=== PATIENT | male | born 1955 | race Caucasian/White ===

== ENCOUNTER → 2017-03-20 | Outpatient (CLI) | payer OTHER ==
--- NOTE | 2017-03-20 14:57 | XR ---
EXAMINATION TYPE: XR chest 2V DATE OF EXAM: 03/20/2017 COMPARISON: 08/02/2014 TECHNIQUE: PA and lateral views submitted. HISTORY: Annual physical FINDINGS: The lungs are clear and there is no pneumothorax, pleural effusion, or focal pneumonia. Hypertrophi c change of the spine. Mild hyperinflation. Biapical pleural thickening. IMPRESSION: 1. No acute process. Correlate for mild COPD.
== END | disposition home or self-care (01) ==
LOC: RADXRMAIN 14:25
PROVIDERS: ATTEND Family Medicine
DX: Z00.00 Encounter for general adult medical examination without abnormal findings (principal)
CPT/HCPCS: 71020

== ENCOUNTER 2019-01-21 07:06 | Day surgery (SDC) | payer BC ==
[2019-01-18 14:48] VITALS: BMI 23.0
[~2019-01-21 07:06] MED LIST: LACTATED RINGERS 1,000 ML IV SCH; LIDOCAINE 1% 20 ML VIAL (10MG/ML) FOR IV START INTRADERMA PRN
[2019-01-21 07:17] VITALS: RESP 18; TEMP 97.1
[2019-01-21] MEDS ORDERED: PROPOFOL 10 MG/ML 20 ML VIAL IV ONE (07:30)
--- NOTE | 2019-01-21 07:33 | P.GSHP ---
History of Present Illness H&P Date: 01/21/19 Chief Complaint: Blood in stool Patient here today for colonoscopy. Last colonoscopy 3 years ago. He had a small polyp at that time. Prep was poor at that time. Recently did cologuard test and was found to be positive. Past Medical History Past Medical History: No Reported History Additional Past Medical History / Comment(s): positive cologuard History of Any Multi-Drug Resistant Organisms: None Reported Additional Past Surgical History / Comment(s): colonoscopy; hemorrhoidectomy Past Anesthesia/Blood Transfusion Reactions: No Reported Reaction Smoking Status: Never smoker - Past Family History Father Family Medical History: Cancer Medications and Allergies Home Medications Medication Instructions Recorded Confirmed Type Aspirin [Adult Low Dose Aspirin EC] 81 mg PO DAILY 01/18/19 01/21/19 History Allergies Allergy/AdvReac Type Severity Reaction Status Date / Time No Known Allergies Allergy Verified 01/18/19 14:42 Surgical - Exam Vital Signs Temp Pulse Resp BP Pulse Ox 97.1 F L 65 18 122/76 97 01/21/19 07:14 01/21/19 07:14 01/21/19 07:14 01/21/19 07:14 01/21/19 07:14 Physical exam: General: Well-developed, well-nourished HEENT: Normocephalic, sclerae nonicteric Abdomen: Nontender, nondistended Extremities: No edema Neuro: Alert and oriented Assessment and Plan (1) Blood in stool Narrative/Plan: Will proceed with colonoscopy at this time Current Visit: Yes Status: Acute Code(s): K92.1 - MELENA SNOMED Code(s): 097601534
--- NOTE | 2019-01-21 07:56 | P.PCN ---
Date of Procedure: 01/21/19 Procedure(s) Performed: PREOPERATIVE DIAGNOSIS: Blood in stool POSTOPERATIVE DIAGNOSIS: Normal exam with slightly suboptimal prep PROCEDURE: Colonoscopy ANESTHESIA: MAC SURGEON: Dewey Junior M.D. SPECIMENS: None ENDOSCOPIC PROCEDURE: The patient was placed on the endoscopy table in the left decubitus position. The Olympus colonoscope was inserted into the anus and passed under direct visualization to the base of the cecum. The appendiceal orifice was visualized. From that point the scope was slowly withdrawn inspecting all surfaces carefully. There were no neoplastic inflammatory or polypoid lesions throughout the cecum, ascending, transverse, descending, sigmoid and rectum. There was no visible diverticulosis noted. Overall the patient's prep was improved since the study 3 years ago however there was still some retained liquid stool seen scattered throughout. There was enough partic ulate matter that made it difficult to evacuate all of the stool. Smaller polyps may have been missed. Recommend follow-up colonoscopy in 5 years. Digital rectal examination was normal. The patient was taken to the recovery room in stable condition per anesthesia guidelines.
[2019-01-21 08:19] VITALS: BP 119/79; PULSE 68
== END 2019-01-21 08:37 | disposition home or self-care (01) ==
LOC: ORWHC2ENDO 07:06
PROVIDERS: ATTEND Surgery
DX: K92.1 Melena (principal); Z86.010 Personal history of colon polyps; Z79.82 Long term (current) use of aspirin
CPT/HCPCS: 45378; J2704

== ENCOUNTER 2021-09-03 17:58 | Emergency (ER) | payer BC ==
[2021-09-03 18:40] VITALS: BP 149/73; PULSE 95; RESP 18; TEMP 98.1
[2021-09-03] MEDS ORDERED: SULFAMETH-TMP DS STARTER PACK 2 TAB BTL PO STA (20:13)
--- NOTE | 2021-09-03 20:15 | ED ---
General Adult HPI - General Chief complaint: Extremity Injury, Upper Stated complaint: infected elbow Time Seen by Provider: 09/03/21 19:49 Source: patient Mode of arrival: ambulatory Limitations: no limitations - History of Present Illness Initial comments: 66-year-old male patient presents to the emergency department today for evaluation of infection to the right arm. Patient states a little over a week ago he fell off a ladder and scraped his arm. States that he went on a cruise and started having redness, swelling, heat to the area. States he did see the cruise ship physician had labs done was diagnosed with cellulitis and started on Augmentin. Patient states he has been taking antibiotic but noticed it started draining pus today. He denies any fever or chills. Denies nausea or vomiting. Denies history of diabetes or MRSA. Patient denies any recent rash, cough, shortness of breath, chest pain, abdominal pain, diarrhea, constipation, back pain, numbness, tingling, dizziness, weakness, hematuria, dysuria, urinary urgency, urinary frequency, headache, visual changes, or any other complaints. - Related Data Home Medications Medication Instructions Recorded Confirmed Aspirin [Adult Low Dose Aspirin EC] 81 mg PO DAILY 01/18/19 01/21/19 Previous Rx's Medication Instructions Recorded Sulfamethoxazole/Trimethoprim 1 each PO BID #20 tablet 09/03/21 [Bactrim DS 800-160 mg] Allergies Allergy/AdvReac Type Severity Reaction Status Date / Time No Known Allergies Allergy Verified 09/03/21 18:40 Review of Systems ROS Statement: Those systems with pertinent positive or pertinent negative responses have been documented in the HPI. ROS Other: All systems not noted in ROS Statement are negative. Past Medical History Past Medical History: No Reported History Additional Past Medical History / Comment(s): positive cologuard History of Any Multi-Drug Resistant Organisms: None Reported Additional Past Surgical History / Comment(s): colonoscopy; hemorrhoidectomy Past Anesthesia/Blood Transfusion Reactions: No Reported Reaction Past Psychological History: No Psychological Hx Reported Smoking Status: Never smoker Past Alcohol Use History: Occasional Past Drug Use History: Marijuana - Past Family History Father Family Medical History: Cancer General Exam Limitations: no limitations General appearance: alert, in no apparent distress, other (This is a well- developed, well-nourished adult male in no acute distress.) ENT exam: Present: normal exam, normal oropharynx, mucous membranes moist Respiratory exam: Present: normal lung sounds bilaterally. Absent: respiratory distress, wheezes, rales, rhonchi, stridor Cardiovascular Exam: Present: regular rate, normal rhythm, normal heart sounds. Absent: systolic murmur, diastolic murmur, rubs, gallop, clicks GI/Abdominal exam: Present: soft, normal bowel sounds. Absent: distended, tenderness, guarding, rebound, rigid Extremities exam: Present: full ROM, normal capillary refill, other (Right lateral forearm erythema, swelling, there is purulent drainage from a central opening. Skin is otherwise pink, warm, dry. Cap refill less than 3 seconds. Radial pulses 2+.). Absent: normal inspection, tenderness, pedal edema, joint swelling, calf tenderness Neurological exam: Present: alert, oriented X3, CN II-XII intact Psychiatric exam: Present: normal affect, normal mood Skin exam: Present: warm, dry, intact, normal color. Absent: rash Course Vital Signs 09/03/21 18:35 Temperature 98.1 F Pulse Rate 95 Respiratory 18 Rate Blood Pressure 149/73 O2 Sat by Pulse 98 Oximetry Medical Decision Making - Medical Decision Making 66-year-old male patient presents for evaluation of infection to the right arm. Physical examination did reveal soft tissue swelling, erythema, purulent drainage from a central opening. I did drain the area, expressed purulent fluid until nothing else would come out. Culture was sent. He'll be discharged with additional antibiotics of Bactrim. He is instructed to continue the Augmentin. He is instructed to apply warm compresses 4-5 times per day. He is instructed follow up with his primary care physician for recheck in 1-2 days. Return parameters were discussed in detail. He verbalizes understanding and agrees with this plan. My attending is Dr. Valencia. Disposition Clinical Impression: Abscess of right arm, Cellulitis of right arm Disposition: HOME SELF-CARE Condition: Good Instructions (If sedation given, give patient instructions): Cellulitis (ED), Abscess (ED) Additional Instructions: Complete antibiotic prescription in full. Follow-up with your primary care physician for recheck in 1-2 days. Return to the emergency department immediately for any new, worsening, or concerning symptoms. Prescriptions: Sulfamethoxazole/Trimethoprim [Bactrim DS 800-160 mg] 1 each PO BID #20 tablet Is patient prescribed a controlled substance at d/c from ED?: No Referrals: Magan Rossi DO [Primary Care Provider] - 1-2 days Time of Disposition: 20:14
== END 2021-09-03 20:39 | disposition home or self-care (01) ==
LOC: EC 17:58
DX: L02.413 Cutaneous abscess of right upper limb (principal); L03.113 Cellulitis of right upper limb
CPT/HCPCS: 87070; 87205; 99283

== ENCOUNTER → 2021-11-02 | Outpatient (CLI) | payer BC ==
[2021-11-02 14:07] LABS: Basophils # (A) 0.06 X 10*3/uL (0.00-0.10); Basophils % (A) 1.3 %; Eosinophils # (A) 0.16 X 10*3/uL (0.04-0.35); Eosinophils % (A) 3.4 %; HCT 44.1 % (39.6-50.0); HGB 14.3 g/dL (13.0-17.0); Immature Grans, Automated 0.2 %; Lymphocytes # (A) 2.03 X 10*3/uL (0.90-5.00); Lymphocytes % (A) 42.6 %; MCH 29.9 pg (27.0-32.0); MCHC 32.4 g/dL (32.0-37.0); MCV 92.1 fL (80.0-97.0); Mean Platelet Volume 11.1 fL (9.5-12.2); Monocytes # (A) 0.41 X 10*3/uL (0.20-1.00); Monocytes % (A) 8.6 %; NRBC Per 100 WBC 0 /100 WBCS (0.0-0.0); Neutrophils # (A) 2.09 X 10*3/uL (1.80-7.70); Neutrophils % (A) 43.9 %; Platelet Count 270 X 10*3/uL (140-440); RBC 4.79 X 10*6/uL (4.40-5.60); RDW 13.3 % (11.5-14.5); WBC 4.76 X 10*3/uL (4.50-10.00)
[2021-11-02 14:25] LABS: ALT 19 U/L (10-49); AST 18 U/L (14-35); African American GFR (CKD) 109.2 (60.0-200.0); Albumin 4.1 g/dL (3.8-4.9); Albumin/Globulin Ratio 1.89 (1.60-3.17); Alkaline Phosphatase 62 U/L (41-126); BUN/Creat Ratio 17.83 Ratio (12.00-20.00); Blood Urea Nitrogen 14.1 mg/dL (9.0-27.0); Calcium 9.3 mg/dL (8.7-10.3); Carbon Dioxide 24.9 mmol/L (20.0-27.5); Chloride 106 mmol/L (96-109); Globulin 2.2 g/dL (1.6-3.3); Glucose 104 mg/dL (70-110); LDL Cholesterol,Calculated 151.4 mg/dL (0.0-131.0); Non-African American GFR(CKD) 94.2 (60.0-200.0); Potassium 4.3 mmol/L (3.5-5.5); Sodium 142 mmol/L (135-145); Total Protein 6.3 g/dL (6.2-8.2); VLDL Calculation 12.04 mg/dL (5.00-40.00)
== END | disposition home or self-care (01) ==
LOC: LABWHC1 08:56
PROVIDERS: ATTEND Family Medicine
DX: Z00.00 Encounter for general adult medical examination without abnormal findings (principal); Z12.5 Encounter for screening for malignant neoplasm of prostate; E78.5 Hyperlipidemia, unspecified
CPT/HCPCS: 84439; 80061; 80053; 84443; 85025; 83036; 36415; G0103

== ENCOUNTER 2023-05-19 12:04 | Day surgery (SDC) | payer BC ==
[2023-05-19] MEDS ORDERED: LACTATED RINGERS 1,000 ML IV SCH (12:23)
[2023-05-19 12:27] VITALS: TEMP 97.7
[2023-05-19] MEDS ORDERED: PROPOFOL 10 MG/ML 20 ML VIAL IV ONE (12:37)
--- NOTE | 2023-05-19 12:40 | P.GSHP ---
History of Present Illness H&P Date: 05/19/23 Chief Complaint: SCREENING 68-year-old male here for colonoscopy. Last colonoscopy 4 years ago. Patient's prep was slightly suboptimal. Patient has history of colon polyps. Family history of colon cancer in his mother. Lately he has had some right-sided abdominal pain. CAT scan and the worry showed constipation. Past Medical History Past Medical History: No Reported History Additional Past Medical History / Comment(s): Abdominal discomfort. History of Any Multi-Drug Resistant Organisms: None Reported Additional Past Surgical History / Comment(s): colonoscopy; hemorrhoidectomy Past Anesthesia/Blood Transfusion Reactions: No Reported Reaction Smoking Status: Never smoker - Past Family History Father Family Medical History: Cancer Medications and Allergies Home Medications Medication Instructions Recorded Confirmed Type Emtricitabine/Tenofovir (Tdf) 1 tab PO QAM 05/14/23 05/19/23 History [Truvada 200 mg-300 mg Tablet] Allergies Allergy/AdvReac Type Severity Reaction Status Date / Time No Known Allergies Allergy Verified 05/19/23 12:28 Surgical - Exam Vital Signs Temp Pulse Resp BP Pulse Ox 97.7 F 79 16 122/82 98 05/19/23 12:26 05/19/23 12:26 05/19/23 12:26 05/19/23 12:26 05/19/23 12:26 Physical exam: General: Well-developed, well-nourished HEENT: Normocephalic, sclerae nonicteric Abdomen: Nontender, nondistended Extremities: No edema Neuro: Alert and oriented Assessment and Plan (1) Colon cancer screening Narrative/Plan: We'll proceed with colonoscopy at this time. Current Visit: No Status: Acute Code(s): Z12.11 - ENCOUNTER FOR SCREENING FOR MALIGNANT NEOPLASM OF COLON SNOMED Code(s): 441857350
--- NOTE | 2023-05-19 12:53 | P.PCN ---
Date of Procedure: 05/19/23 Procedure(s) Performed: PREOPERATIVE DIAGNOSIS: Colon cancer screening POSTOPERATIVE DIAGNOSIS: Normal exam PROCEDURE: Colonoscopy ANESTHESIA: MAC SURGEON: Dewey Junior M.D. SPECIMENS: None ENDOSCOPIC PROCEDURE: The patient was placed on the endoscopy table in the left decubitus position. The Olympus colonoscope was inserted into the anus and passed under direct visualization to the base of the cecum. The appendiceal orifice was visualized. From that point the scope was slowly withdrawn inspecti ng all surfaces carefully. There were no neoplastic inflammatory or polypoid lesions throughout the cecum, ascending, transverse, descending, sigmoid and rectum. There was no visible diverticulosis noted. Digital rectal examination was normal. The patient was taken to the recovery room in stable condition per anesthesia guidelines. RECOMMENDATIONS: Resume diet. Repeat colonoscopy in 5-7 years because of history of colon polyps. Continue workup of abdominal pain.
[2023-05-19 13:55] VITALS: BP 110/67; PULSE 78; RESP 18
== END 2023-05-19 14:06 | disposition home or self-care (01) ==
LOC: ORWHC2ENDO 12:04
PROVIDERS: ATTEND Surgery
DX: Z12.11 Encounter for screening for malignant neoplasm of colon (principal); Z86.010 Personal history of colon polyps; Z79.624 Long term (current) use of inhibitors of nucleotide synthesis; Z79.82 Long term (current) use of aspirin; Z80.0 Family history of malignant neoplasm of digestive organs
CPT/HCPCS: 45378; J2704

== ENCOUNTER → 2023-08-27 | Outpatient (CLI) | payer BC ==
--- NOTE | 2023-08-27 12:21 | CT ---
EXAMINATION: CT ABDOMEN AND PELVIS WITHOUT IV CONTRAST DATE OF EXAMINATION: 08/27/2023. COMPARISON: 08/15/2023.. INDICATION: Right upper quadrant pain. PROCEDURE: Axial CT of the abdomen and pelvis was performed with contrast and sagittal and coronal reformatted images were performed. CT dose lowering techniques were used, to include: automated expos ure control, adjustment for patient size, and/or use of iterative reconstruction. FINDINGS: LOWER CHEST : The visualized lung bases are clear. There are no pleural or pericardial effusions. ABDOMEN: Liver and Biliary system: Normal. Adrenal glands: Normal. Kidneys and ureters: Unchanged right renal cyst. No renal stones, ureteral stones or hydronephrosis i s seen Spleen: Normal. Pancreas: Normal. Gallbladder: Normal. Lymph nodes, Peritoneum and mesentery: There is no mesenteric or retroperitoneal lymphadenopathy. Gastrointestinal tract: There are no dilated loops of bowel or free intraperitoneal air. The appe ndix is normal. Aorta/IVC: No aortic aneurysm. IVC normal. Abdominal wall: Normal. PELVIS: Fluid: There is no free fluid in the pelvis. Lymph Nodes: There is no pelvic or inguinal lymphadenopathy.. Urinary bladder: Normal. BONES: There are no osseous destructive lesions.. ADDITIONAL SIGNIFICANT FINDINGS: None. IMPRESSION: No acute process within the abdomen or pelvis.
== END | disposition home or self-care (01) ==
LOC: RADCTMAIN 10:15
PROVIDERS: ATTEND Family Medicine
DX: R10.11 Right upper quadrant pain (principal)
CPT/HCPCS: 74176

== ENCOUNTER → 2023-09-15 | Outpatient (CLI) | payer BC ==
--- NOTE | 2023-09-15 13:46 | NM ---
EXAMINATION TYPE: NM hepatobiliary w EF DATE OF EXAM: 09/15/2023 COMPARISON: NONE CLINICAL INDICATION: Male, 68 years old with history of RUQ pain; TECHNIQUE: After the intravenous administration of 4.9 mCi Tc 99m Mebrofenin hepatobiliary scintigrap hy is performed. Immediate images post injection. FINDINGS: There is satisfactory initial accumulation of tracer by the liver. The gallbladder is visualized wit hin 10 minutes. The small bowel activity is noted within 8 minutes. At one hour 8 ounces of oral ensure plus is given to mimic CCK and gallbladder ejection fraction is c alculated at 72 %, upper limits of the normal range. IMPRESSION: No scintigraphic evidence for acute/chronic cholecystitis or biliary dyskinesia.
== END | disposition home or self-care (01) ==
LOC: RADNMMAIN 09-14 13:08
PROVIDERS: ATTEND Family Medicine
DX: R10.11 Right upper quadrant pain (principal)
CPT/HCPCS: 78226; A9537

== ENCOUNTER 2023-09-18 16:20 | Observation (INO) | payer BC ==
--- NOTE | 2023-09-18 16:42 | ED ---
Skin/Abscess/FB HPI - General Source: patient, RN notes reviewed <Shani Chao - Last Filed: 09/18/23 16:40> - General Source: patient, RN notes reviewed Limitations: no limitations <Albino Ramirez - Last Filed: 09/18/23 20:38> - General Stated complaint: left face rash Time Seen by Provider: 09/18/23 16:40 - History of Present Illness Initial comments: Patient is a 68 year old male presenting to the ER with a chief complaint of facial rash. Patient states it has been going on for a couple of days and has gotten worse. Denies and fever, chills, nightsweats. (Shani Chao) Patient is a pleasant 68-year-old male presenting to the emergency Department with rash to his face. Onset was a couple days ago. Patient had basal cell carcinoma removed from his left scalp several days prior to that. No fever. Patient does have discomfort and swelling. No dyspnea or dysphasia. (Albino Ramirez) - Related Data Home Medications Medication Instructions Recorded Confirmed Emtricitabine/Tenofovir (Tdf) 1 tab PO DAILY 05/14/23 09/18/23 [Truvada 200 mg-300 mg Tablet] Multivitamins, Thera [Multivitamin 1 tab PO DAILY 09/18/23 09/18/23 (formulary)] Prevagen 1 cap PO DAILY 09/18/23 09/18/23 Sildenafil Citrate 100 mg PO DIRECTED PRN 09/18/23 09/18/23 Allergies Allergy/AdvReac Type Severity Reaction Status Date / Time No Known Allergies Allergy Verified 09/18/23 18:19 Review of Systems ROS Other: All systems not noted in ROS Statement are negative. <Shani Chao - Last Filed: 09/18/23 16:40> ROS Other: All systems not noted in ROS Statement are negative. Constitutional: Denies: fever, chills Eyes: Denies: eye pain ENT: Denies: ear pain Respiratory: Denies: cough, dyspnea Cardiovascular: Denies: chest pain Skin: Reports: as per HPI, rash <Albino Ramirez - Last Filed: 09/18/23 20:38> ROS Statement: Those systems with pertinent positive or pertinent negative responses have been documented in the HPI. Past Medical History Past Medical History: No Reported History Additional Past Medical History / Comment(s): Abdominal discomfort. History of Any Multi-Drug Resistant Organisms: None Reported Additional Past Surgical History / Comment(s): colonoscopy; hemorrhoidectomy Past Anesthesia/Blood Transfusion Reactions: No Reported Reaction Smoking Status: Never smoker - Past Family History Father Family Medical History: Cancer <Shani Chao - Last Filed: 09/18/23 16:40> General Exam <Shani Chao - Last Filed: 09/18/23 16:40> Limitations: no limitations General appearance: alert Head exam: Present: other (3-4 cm incision left parietal region with swelling and purulent discharge) Eye exam: Present: normal appearance ENT exam: Present: normal oropharynx Neck exam: Present: normal inspection Respiratory exam: Present: normal lung sounds bilaterally Cardiovascular Exam: Present: regular rate, normal rhythm GI/Abdominal exam: Present: soft. Absent: tenderness Extremities exam: Present: normal inspection Neurological exam: Present: alert Psychiatric exam: Present: normal affect, normal mood Skin exam: Present: other (Left scalp incision with swelling and purulent drainage and erythema extending to the left side of the face and neck.) <Albino Ramirez - Last Filed: 09/18/23 20:38> - General Exam Comments Initial Comments: Visual Physical Exam Vital signs reviewed General: Well-appearing, nontoxic, no acute distress. Head: Normocephalic, abrasion on left forehead Eyes: PERRLA, EOMI ENT: Airway patent Chest: Nonlabored breathing Skin: Left face erythematous Neuro: Alert and oriented 3 Musculoskeletal: No gross abnormalities (Shani Chao) Course Vital Signs 09/18/23 09/18/23 16:45 19:13 Temperature 98.5 F 98.9 F Pulse Rate 93 94 Respiratory 18 16 Rate Blood Pressure 141/82 148/89 O2 Sat by Pulse 98 98 Oximetry Medical Decision Making <Shani Chao - Last Filed: 09/18/23 16:40> - Lab Data Result diagrams: 09/18/23 17:45 09/18/23 17:45 <Albino Ramirez - Last Filed: 09/18/23 20:38> - Medical Decision Making I performed the quick note portion of the exam. Electronically signed by Shani Chao PA-C (Shani Chao) Was pt. sent in by a medical professional or institution ([facility], [facility], urgent care, hospital, or residential...) When possible be specific @ -Patient did go to urgent care and was advised come to the hospital Did you speak to anyone other than the patient for history (EMS, parent, family, police, friend...)? What history was obtained from this source @ -No Did you review nursing and triage notes (agree or disagree)? Why? @ -I reviewed and agree with nursing and triage notes Were old charts reviewed (outside hosp., previous admission, EMS record, old EKG, old radiological studies, urgent care reports/EKG's, residential records)? Report findings @ -No old charts were reviewed Differential Diagnosis (chest pain, altered mental status, abdominal pain women, abdominal pain men, vaginal bleeding, weakness, fever, dyspnea, syncope, headache, dizziness, GI bleed, back pain, seizure, CVA, palpatations, mental health, musculoskeletal)? @ -Differential Fever: Pneumonia, viral URI, endocarditis, myocarditis, pericarditis, otitis, sinusitis, peritonsillar Abscess, retropharyngeal Abscess, epiglottitis, periton itis, appendicitis, Kyra cystitis, diverticulitis, hepatitis, colitis, UTI, PID, TOA, pyelonephritis, prostatitis, epididymitis, meningitis, encephalitis, pulmonary embolism, CVA, thyroid storm, pancreatitis, adrenal crisis, cavernous sinus thrombosis, this is not meant to be an all-inclusive list. EKG interpreted by me (3pts min.). @ -As above X-rays interpreted by me (1pt min.). @ -None done CT interpreted by me (1pt min.). @ -None done U/S interpreted by me (1pt. min.). @ -None done What testing was considered but not performed or refused? (CT, X-rays, U/S, labs)? Why? @ -None What meds were considered but not given or refused? Why? @ -None Did you discuss the management of the patient with other professionals (professionals i.e. [facility], [facility], lab, RT, psych nurse, psychosocial rehabilitation counselor, power equipment technology instructor, teacher, patient safety officer, pillowcase cleaner)? Give summary @ -Case was discussed with practitioner Niko Sargent, who will admit covering hospital call Was smoking cessation discussed for >3mins.? @ -No Was critical care preformed (if so, how long)? @ -No Were there social determinants of health that impacted care today? How? (Homelessness, low income, unemployed, alcoholism, drug addiction, transportation, low edu. Level, literacy, decrease access to med. care, [facility], rehab)? @ -No Was there de-escalation of care discussed even if they declined (Discuss DNR or withdrawal of care, Hospice)? DNR status @ -No What co-morbidities impacted this encounter? (DM, HTN, Smoking, COPD, CAD, Cancer, CVA, ARF, Chemo, Hep., AIDS, mental health diagnosis, sleep apnea, morbid obesity)? @ -None Was patient admitted / discharged? Hospital course, mention meds given and route, prescriptions, significant lab abnormalities, going to OR and other pertinent info. @ -Patient updated. Patient will be admitted with IV antibiotics. Admission orders written. Undiagnosed new problem with uncertain prognosis? @ -No Drug Therapy requiring intensive monitoring for toxicity (Heparin, Nitro, Insulin, Cardizem)? @ -No Were any procedures done? @ -No Diagnosis/symptom? @ -Facial cellulitis, scalp incision infection Acute, or Chronic, or Acute on Chronic? @ - acute, acute Uncomplicated (without systemic symptoms) or Complicated (systemic symptoms)? @ -default Side effects of treatment? @ -No Exacerbation, Progression, or Severe Exacerbation? @ -No Poses a threat to life or bodily function? How? (Chest pain, USA, NE, pneumonia, PE, COPD, DKA, ARF, appy, cholecystitis, CVA, Diverticulitis, Homicidal, Suicidal, threat to staff... and all critical care pts) @ -No (Albino Ramirez) - Lab Data Lab Results 09/18/23 09/18/23 09/18/23 Range/Units 17:45 17:45 17:45 WBC 9.9 (3.8-10.6) k/uL RBC 4.71 (4.30-5.90) m/uL Hgb 14.7 (13.0-17.5) gm/dL Hct 43.0 (39.0-53.0) % MCV 91.2 (80.0-100.0) fL MCH 31.2 (25.0-35.0) pg MCHC 34.2 (31.0-37.0) g/dL RDW 12.6 (11.5-15.5) % Plt Count 250 (150-450) k/uL MPV 7.8 Neutrophils % 74 % Lymphocytes % 18 % Monocytes % 5 % Eosinophils % 1 % Basophils % 0 % Neutrophils # 7.3 (1.3-7.7) k/uL Lymphocytes # 1.8 (1.0-4.8) k/uL Monocytes # 0.5 (0-1.0) k/uL Eosinophils # 0.1 (0-0.7) k/uL Basophils # 0.0 (0-0.2) k/uL PT 9.9 L (10.0-12.5) sec INR 0.9 (<1.2) APTT 25.0 (22.0-30.0) sec Sodium 138 (137-145) mmol/L Potassium 4.3 (3.5-5.1) mmol/L Chloride 100 (98-107) mmol/L Carbon Dioxide 26 (22-30) mmol/L Anion Gap 12 mmol/L BUN 19 (9-20) mg/dL Creatinine 0.81 (0.66-1.25) mg/dL Est GFR (CKD-EPI)AfAm >90 (>60 ml/min/1.73 sqM) Est GFR (CKD-EPI)NonAf >90 (>60 ml/min/1.73 sqM) Glucose 92 (74-99) mg/dL Plasma Lactic Acid Jose (0.7-2.0) mmol/L Calcium 9.3 (8.4-10.2) mg/dL Total Bilirubin 0.8 (0.2-1.3) mg/dL AST 25 (17-59) U/L ALT 24 (4-49) U/L Alkaline Phosphatase 92 (38-126) U/L Total Protein 6.9 (6.3-8.2) g/dL Albumin 3.8 (3.5-5.0) g/dL 09/18/23 Range/Units 17:45 WBC (3.8-10.6) k/uL RBC (4.30-5.90) m/uL Hgb (13.0-17.5) gm/dL Hct (39.0-53.0) % MCV (80.0-100.0) fL MCH (25.0-35.0) pg MCHC (31.0-37.0) g/dL RDW (11.5-15.5) % Plt Count (150-450) k/uL MPV Neutrophils % % Lymphocytes % % Monocytes % % Eosinophils % % Basophils % % Neutrophils # (1.3-7.7) k/uL Lymphocytes # (1.0-4.8) k/uL Monocytes # (0-1.0) k/uL Eosinophils # (0-0.7) k/uL Basophils # (0-0.2) k/uL PT (10.0-12.5) sec INR (<1.2) APTT (22.0-30.0) sec Sodium (137-145) mmol/L Potassium (3.5-5.1) mmol/L Chloride (98-107) mmol/L Carbon Dioxide (22-30) mmol/L Anion Gap mmol/L BUN (9-20) mg/dL Creatinine (0.66-1.25) mg/dL Est GFR (CKD-EPI)AfAm (>60 ml/min/1.73 sqM) Est GFR (CKD-EPI)NonAf (>60 ml/min/1.73 sqM) Glucose (74-99) mg/dL Plasma Lactic Acid Jose 0.9 (0.7-2.0) mmol/L Calcium (8.4-10.2) mg/dL Total Bilirubin (0.2-1.3) mg/dL AST (17-59) U/L ALT (4-49) U/L Alkaline Phosphatase (38-126) U/L Total Protein (6.3-8.2) g/dL Albumin (3.5-5.0) g/dL Disposition <Shani Chao - Last Filed: 09/18/23 16:40> Is patient prescribed a controlled substance at d/c from ED?: No Time of Disposition: 17:47 <Albino Ramirez - Last Filed: 09/18/23 20:38> Clinical Impression: Facial cellulitis, Incisional infection Disposition: ADMITTED IP TO THIS HOSP
[2023-09-18] MEDS ORDERED: VANCOMYCIN IV PER PHARMACY 1 EACH MISC MISCELLANE PRN (17:37)
[2023-09-18] MEDS ORDERED: AMPICILLIN-SULBACTAM 3 GM in SODIUM CHLORIDE 0.9% 100 ML IVPB STA (17:38)
[2023-09-18] MEDS ORDERED: VANCOMYCIN 1,500 MG in SODIUM CHLORIDE 0.9% 500 ML 500 ML IVPB STA (17:42)
[2023-09-18] MEDS ORDERED: ACETAMINOPHEN TAB 325 MG TAB PO PRN (17:49)
[2023-09-18] MEDS ORDERED: NALOXONE 0.4 MG/ML 1 ML VIAL IV PRN (17:49)
[2023-09-18] MEDS ORDERED: traMADol 50 MG TAB PO PRN (17:49)
[2023-09-18] MEDS: SODIUM CHLORIDE 0.9% 1,000 ML IV SCH ×2 (18:06→23:56)
[2023-09-18 18:36] LABS: Basophils % (A) 0 %; Eosinophils # (A) 0.1 k/uL (0-0.7); Eosinophils % (A) 1 %; HGB 14.7 gm/dL (13.0-17.5); Lymphocytes # (A) 1.8 k/uL (1.0-4.8); Lymphocytes % (A) 18 %; MCH 31.2 pg (25.0-35.0); MCHC 34.2 g/dL (31.0-37.0); MCV 91.2 fL (80.0-100.0); Mean Platelet Volume 7.8; Monocytes # (A) 0.5 k/uL (0-1.0); Monocytes % (A) 5 %; Neutrophils # (A) 7.3 k/uL (1.3-7.7); Neutrophils % (A) 74 %; Platelet Count 250 k/uL (150-450); RBC 4.71 m/uL (4.30-5.90); RDW 12.6 % (11.5-15.5); WBC 9.9 k/uL (3.8-10.6)
[2023-09-18 18:43] LABS: INR 0.9 (<1.2); Prothrombin Time 9.9 sec (10.0-12.5)
[2023-09-18 18:46] LABS: ALT 24 U/L (4-49); AST 25 U/L (17-59); African American GFR (CKD) >90 (>60 ml/min/1.73 sqM); Albumin 3.8 g/dL (3.5-5.0); Alkaline Phosphatase 92 U/L (38-126); Anion Gap 12 mmol/L; Blood Urea Nitrogen 19 mg/dL (9-20); Calcium 9.3 mg/dL (8.4-10.2); Carbon Dioxide 26 mmol/L (22-30); Chloride 100 mmol/L (98-107); Glucose 92 mg/dL (74-99); Non-African American GFR(CKD) >90 (>60 ml/min/1.73 sqM); Potassium 4.3 mmol/L (3.5-5.1); Sodium 138 mmol/L (137-145); Total Bilirubin 0.8 mg/dL (0.2-1.3); Total Protein 6.9 g/dL (6.3-8.2)
[2023-09-18 19:32] VITALS: RESP 16
[2023-09-18] MEDS: AMPICILLIN-SULBACTAM 3 GM in SODIUM CHLORIDE 0.9% 100 ML IVPB SCH (23:54)
[2023-09-19] MEDS: AMPICILLIN-SULBACTAM 3 GM in SODIUM CHLORIDE 0.9% 100 ML IVPB SCH ×3 (06:01→18:30)
[2023-09-19 07:48] LABS: Basophils # (A) 0.1 k/uL (0-0.2); Basophils % (A) 1 %; Eosinophils # (A) 0.2 k/uL (0-0.7); Eosinophils % (A) 2 %; HCT 36.9 % (39.0-53.0); HGB 12.4 gm/dL (13.0-17.5); Lymphocytes # (A) 1.9 k/uL (1.0-4.8); Lymphocytes % (A) 23 %; MCH 30.6 pg (25.0-35.0); MCHC 33.7 g/dL (31.0-37.0); MCV 90.9 fL (80.0-100.0); Mean Platelet Volume 8.4; Monocytes # (A) 0.4 k/uL (0-1.0); Monocytes % (A) 5 %; Neutrophils # (A) 5.7 k/uL (1.3-7.7); Neutrophils % (A) 68 %; Platelet Count 222 k/uL (150-450); RBC 4.06 m/uL (4.30-5.90); WBC 8.5 k/uL (3.8-10.6)
[2023-09-19 08:10] LABS: African American GFR (CKD) >90 (>60 ml/min/1.73 sqM); Anion Gap 9 mmol/L; Blood Urea Nitrogen 14 mg/dL (9-20); Calcium 8.5 mg/dL (8.4-10.2); Carbon Dioxide 23 mmol/L (22-30); Chloride 108 mmol/L (98-107); Glucose 85 mg/dL (74-99); Non-African American GFR(CKD) >90 (>60 ml/min/1.73 sqM); Sodium 140 mmol/L (137-145)
[2023-09-19] MEDS: VANCOMYCIN 1,500 MG in SODIUM CHLORIDE 0.9% 500 ML 500 ML IVPB SCH ×2 (09:44→18:30)
[2023-09-19] MEDS ORDERED: oxyCODONE-APAP 5-325MG 1 EACH TAB PO PRN (09:50)
[2023-09-19] MEDS ORDERED: ONDANSETRON 4 MG/2 ML VIAL IVP PRN (09:50)
[2023-09-19] MEDS: SODIUM CHLORIDE 0.9% 1,000 ML IV SCH ×2 (13:11→18:20)
[2023-09-19] MEDS: EMTRICITABINE/TENOFOVIR 200MG/300MG PO SCH (13:11)
--- NOTE | 2023-09-19 15:49 | P.HPIM ---
History of Present Illness H&P Date: 09/19/23 Chief Complaint: Facial rash * 68-year-old gentleman with past medical history significant for recent resection for basal cell carcinoma on left side of scalp, presents to the emergency department with complains of facial rash suspected cellulitis * Workup in ER included CBC which were WBC of 9.9 hemoglobin 14.7 platelet 250 INR of 0.9 * Serum chemistry shows sodium 138 potassium 4.3 chloride 100 B UN 19 creatinine 0.81 * Patient was started on IV antibiotics including Unasyn and vancomycin included with fluid resuscitation and consultation from infectious disease REVIEW OF SYSTEMS: Left scalp CONSTITUTIONAL: No fever, no malaise, no fatigue. HEENT: No recent visual problems or hearing problems. Denied any sore throat. CARDIOVASCULAR: No chest pain, orthopnea, PND, no palpitations, no syncope. PULMONARY: No shortness of breath, no cough, no hemoptysis. GASTROINTESTINAL: No diarrhea, no nausea, no vomiting, no abdominal pain. NEUROLOGICAL: No headaches, no weakness, no numbness. HEMATOLOGICAL: Denies any bleeding or petechiae. GENITOURINARY: Denies any burning micturition, frequency, or urgency. MUSCULOSKELETAL/RHEUMATOLOGICAL: Denies any joint pain, swelling, or any muscle pain. ENDOCRINE: Denies any polyuria or polydipsia. PHYSICAL EXAMINATION: GENERAL: The patient is alert and oriented x3, HEENT: Pupils are round and equally reacting to light. EOMI. discharge from surgical resection site CARDIOVASCULAR: S1 and S2 present. No murmurs, rubs, or gallops. PULMONARY: Chest is clear to auscultation, no wheezing or crackles. ABDOMEN: Soft, nontender, nondistended, normoactive bowel sounds. No palpable organomegaly. MUSCULOSKELETAL: No joint swelling or deformity. EXTREMITIES: No cyanosis, clubbing, or pedal edema. NEUROLOGICAL: Gross neurological examination did not reveal any focal deficits. SKIN: Left scalp rash with purulent discharge Past Medical History Past Medical History: No Reported History Additional Past Medical History / Comment(s): Abdominal discomfort History of Any Multi-Drug Resistant Organisms: None Reported Additional Past Surgical History / Comment(s): colonoscopy; hemorrhoidectomy, removed basal cancer on top of head Past Anesthesia/Blood Transfusion Reactions: No Reported Reaction Past Psychological History: No Psychological Hx Reported Smoking Status: Never smoker Past Alcohol Use History: None Reported Past Drug Use History: None Reported - Past Family History Father Family Medical History: Cancer Medications and Allergies Home Medications Medication Instructions Recorded Confirmed Type Emtricitabine/Tenofovir (Tdf) 1 tab PO DAILY 05/14/23 09/18/23 History [Truvada 200 mg-300 mg Tablet] Multivitamins, Thera [Multivitamin 1 tab PO DAILY 09/18/23 09/18/23 History (formulary)] Prevagen 1 cap PO DAILY 09/18/23 09/18/23 History Sildenafil Citrate 100 mg PO DIRECTED PRN 09/18/23 09/18/23 History Allergies Allergy/AdvReac Type Severity Reaction Status Date / Time No Known Allergies Allergy Verified 09/18/23 18:19 Physical Exam Vitals: Vital Signs Temp Pulse Pulse Resp BP BP Pulse Ox 09/19/23 07:00 97.7 F 82 16 107/69 97 09/19/23 02:00 98.2 F 80 16 110/67 96 09/18/23 21:01 97.7 F 93 16 123/77 99 09/18/23 19:13 98.9 F 94 16 148/89 98 09/18/23 16:45 98.5 F 93 18 141/82 98 Intake and Output 09/18/23 09/19/23 09/19/23 22:59 06:59 14:59 Intake Total 500 118 Balance 500 118 Intake: Oral 500 118 Other: # Voids 1 Weight 79.379 kg Results CBC & Chem 7: 09/19/23 06:50 09/19/23 06:50 Labs: Abnormal Lab Results - Last 24 Hours (Table) 09/18/23 09/19/23 09/19/23 Range/Units 17:45 06:50 06:50 RBC 4.06 L (4.30-5.90) m/uL Hgb 12.4 L (13.0-17.5) gm/dL Hct 36.9 L (39.0-53.0) % PT 9.9 L (10.0-12.5) sec Chloride 108 H (98-107) mmol/L Assessment and Plan Assessment: Assessment and plan * Status post resection of skin lesion with cellulitis * Left scalp cellulitis * History of basal cell carcinoma * In regards to facial cellulitis continue IV antibiotic Unasyn and vancomycin * Infectious disease consulted * Continue patient on IV fluid, continue pain control, DVT prophylaxis with Lovenox * CODE STATUS is full code Time with Patient: Greater than 30
[2023-09-19] MEDS: DOCUSATE 100 MG CAP PO SCH (16:23)
--- NOTE | 2023-09-19 23:37 | P.CONS ---
History of Present Illness - Reason for Consult Consult date: 09/19/23 Facial cellulitis, infected incision Requesting physician: Albino Ramirez - Chief Complaint Left-sided facial swelling x 1 day - History of Present Illness Patient is a 68-year-old male with a past medical history significant for recent resection of a basal cell carcinoma from the scalp area patient subsequently developing pain and irritation to his incision site and then noticed to having increasing swelling and redness to the left side of his face for the patient presented to the hospital patient has been complaining of pain to the scalp or needed to be more of a dull aching throbbing moderate intensity without any radiation and did have some drainage also complaining of increasing swelling or redness to the left side his face especially while the left p eriorbital area patient denies high-grade fever or any chills and on presentation to the hospital the patient was afebrile patient was not tachycardic hypotensive or hypoxic he did have white count of 9.9 creatinine 0.81 electrolytes are normal liver enzymes are normal patient was started on Unasyn and vancomycin infectious disease was consulted for further management of antibiotic therapy Review of Systems Positive point and negatives has been mentioned in the HPI, complete review of systems was performed and all other systems are negative Past Medical History Past Medical History: No Reported History Additional Past Medical History / Comment(s): Abdominal discomfort History of Any Multi-Drug Resistant Organisms: None Reported Additional Past Surgical History / Comment(s): colonoscopy; hemorrhoidectomy, removed basal cancer on top of head Past Anesthesia/Blood Transfusion Reactions: No Reported Reaction Past Psychological History: No Psychological Hx Reported Smoking Status: Never smoker Past Alcohol Use History: None Reported Past Drug Use History: None Reported - Past Family History Father Family Medical History: Cancer Medications and Allergies Home Medications Medication Instructions Recorded Confirmed Type Emtricitabine/Tenofovir (Tdf) 1 tab PO DAILY 05/14/23 09/18/23 History [Truvada 200 mg-300 mg Tablet] Multivitamins, Thera [Multivitamin 1 tab PO DAILY 09/18/23 09/18/23 History (formulary)] Prevagen 1 cap PO DAILY 09/18/23 09/18/23 History Sildenafil Citrate 100 mg PO DIRECTED PRN 09/18/23 09/18/23 History Amoxic-Pot Clav 875-125Mg 1 tab PO BID 7 Days #14 tab 09/20/23 Rx [Augmentin 875-125] Allergies Allergy/AdvReac Type Severity Reaction Status Date / Time No Known Allergies Allergy Verified 09/18/23 18:19 Physical Exam Vitals: Vital Signs Temp Pulse Pulse Resp BP BP Pulse Ox 09/19/23 07:00 97.7 F 82 16 107/69 97 09/19/23 02:00 98.2 F 80 16 110/67 96 09/18/23 21:01 97.7 F 93 16 123/77 99 09/18/23 19:13 98.9 F 94 16 148/89 98 09/18/23 16:45 98.5 F 93 18 141/82 98 Intake and Output 09/18/23 09/19/23 09/19/23 22:59 06:59 14:59 Intake Total 500 118 Balance 500 118 Intake: Oral 500 118 Other: # Voids 1 Weight 79.379 kg GENERAL DESCRIPTION: Elderly male lying in bed, no distress. No tachypnea or accessory muscle of respiration use. HEENT: Shows Pallor , no scleral icterus. Oral mucous membrane is dry. No pharyngeal erythema or thrush NECK: Trachea central, no thyromegaly. LUNGS: Unlabored breathing. Clear to auscultation anteriorly. No wheeze or crackle. HEART: S1, S2, regular rate and rhythm. No loud murmur ABDOMEN: Soft, no tenderness , guarding or rigidity, no organomegaly EXTREMITIES: No edema of feet. SKIN: Patient did have a wound to the scalp area currently with no slough tissue or foul-smelling drainage, patient did have a left-sided facial swelling and redness but no open wound or any drainage NEUROLOGICAL: The patient is awake, alert, oriented x3, mood and affect normal. Results CBC & Chem 7: 09/20/23 06:13 09/20/23 06:13 Labs: Abnormal Lab Results - Last 24 Hours (Table) 09/18/23 09/19/23 09/19/23 Range/Units 17:45 06:50 06:50 RBC 4.06 L (4.30-5.90) m/uL Hgb 12.4 L (13.0-17.5) gm/dL Hct 36.9 L (39.0-53.0) % PT 9.9 L (10.0-12.5) sec Chloride 108 H (98-107) mmol/L Assessment and Plan (1) Facial cellulitis Current Visit: Yes Status: Acute Code(s): L03.211 - CELLULITIS OF FACE SNOMED Code(s): 812997982 (2) Incisional infection Current Visit: Yes Status: Acute Code(s): T81.49XA - INFECTION FOLLOWING A PROCEDURE, OTHER SURGICAL SITE, INIT SNOMED Code(s): 37286454 Plan: 1patient presented to hospital with a left-sided facial cellulitis in this patient who recently did have removal of the basal cell carcinoma from the scalp daily more likely related to surgical site infection with secondary cellulitis likely from gram-positive skin lidia less likely gram-negative infection 2-patient to continue with Unasyn and vancomycin while waiting for the culture to finalize We will follow on clinical condition and cultures to further adjust medication if needed Thank you for this consultation we will follow the patient along with you Dictation was produced using [employer] dictation software. please excuse any gr ammatical, word or spelling errors. Time with Patient: Greater than 30
[2023-09-20] MEDS: AMPICILLIN-SULBACTAM 3 GM in SODIUM CHLORIDE 0.9% 100 ML IVPB SCH ×3 (00:14→12:01)
[2023-09-20] MEDS: SODIUM CHLORIDE 0.9% 1,000 ML IV SCH ×2 (05:27→08:47)
[2023-09-20] MEDS ORDERED: VANCOMYCIN TROUGH DUE 1 EACH MISC MISCELLANE ONE (06:00)
[2023-09-20 06:41] LABS: African American GFR (CKD) >90 (>60 ml/min/1.73 sqM); Anion Gap 8 mmol/L; Blood Urea Nitrogen 13 mg/dL (9-20); Calcium 8.8 mg/dL (8.4-10.2); Carbon Dioxide 27 mmol/L (22-30); Chloride 108 mmol/L (98-107); Glucose 89 mg/dL (74-99); Non-African American GFR(CKD) 89 (>60 ml/min/1.73 sqM); Potassium 4.1 mmol/L (3.5-5.1); Sodium 143 mmol/L (137-145)
[2023-09-20] MEDS: VANCOMYCIN 1,500 MG in SODIUM CHLORIDE 0.9% 500 ML 500 ML IVPB SCH (07:04)
[2023-09-20] MEDS: DOCUSATE 100 MG CAP PO SCH (08:44)
[2023-09-20] MEDS: EMTRICITABINE/TENOFOVIR 200MG/300MG PO SCH (08:51)
[2023-09-20 08:57] VITALS: BP 114/65; PULSE 73; TEMP 97.7
[2023-09-20] MEDS ORDERED: ENOXAPARIN 40 MG/0.4 ML SYRINGE SQ SCH (09:00)
[2023-09-20 10:10] LABS: Basophils # (A) 0.06 X 10*3/uL (0.00-0.10); Basophils % (A) 0.9 %; Eosinophils # (A) 0.31 X 10*3/uL (0.04-0.35); Eosinophils % (A) 4.7 %; HCT 38.7 % (39.6-50.0); Lymphocytes # (A) 2.04 X 10*3/uL (0.90-5.00); Lymphocytes % (A) 31.2 %; MCHC 33.6 g/dL (32.0-37.0); MCV 92.1 FL (80.0-97.0); Mean Platelet Volume 9.9 FL (9.5-12.2); Monocytes # (A) 0.55 X 10*3/uL (0.20-1.00); Monocytes % (A) 8.4 %; NRBC Per 100 WBC 0 X 10*3/uL (0.00-0.01); Neutrophils # (A) 3.55 X 10*3/uL (1.80-7.70); Neutrophils % (A) 54.5 %; Platelet Count 243 X 10*3/uL (140-440); RDW 12.7 % (11.5-14.5); WBC 6.53 X 10*3/uL (4.50-10.00)
--- NOTE | 2023-09-20 14:52 | P.DS ---
Providers Date of admission: 09/18/23 17:50 Expected date of discharge: 09/20/23 Attending physician: Luis Lipscomb Consults: 09/18/23 17:53 Consult Physician Urgent Consulting Provider: Hayder Rivera Consult Reason/Comments: Facial cellulitis, infected incision Do you want consulting provider notified?: Yes Primary care physician: [facility] Course: * 68-year-old gentleman with past medical history significant for recent resection for basal cell carcinoma on left side of scalp, presents to the emergency department with complains of facial rash suspected cellulitis * Workup in ER included CBC which were WBC of 9.9 hemoglobin 14.7 platelet 250 INR of 0.9 * Serum chemistry shows sodium 138 potassium 4.3 chloride 100 B UN 19 creatinine 0.81 * Patient was started on IV antibiotics including Unasyn and vancomycin included with fluid resuscitation and consultation from infectious disease * 09/20/2023: Patient seen and evaluated bedside white cell count within normal limits patient remains afebrile, patient was treated with IV antibiotics and transition to oral Augmentin patient was seen by infectious disease and surgery for discharge outpatient follow-up with primary surgeon requested as well PHYSICAL EXAMINATION: GENERAL: The patient is alert and oriented x3, HEENT: Pupils are round and equally reacting to light. EOMI. discharge from surgical resection site improved CARDIOVASCULAR: S1 and S2 present. No murmurs, rubs, or gallops. PULMONARY: Chest is clear to auscultation, no wheezing or crackles. ABDOMEN: Soft, nontender, nondistended, normoactive bowel sounds. No palpable organomegaly. MUSCULOSKELETAL: No joint swelling or deformity. EXTREMITIES: No cyanosis, clubbing, or pedal edema. NEUROLOGICAL: Gross neurological examination did not reveal any focal deficits. SKIN: Left scalp rash with purulent discharge proved Assessment: Assessment and plan * Status post resection of skin lesion with cellulitis * Left scalp cellulitis * History of basal cell carcinoma with chart review, no documented biopsy * In regards to scalp cellulitis, patient received Unasyn and vancomycin transition to oral Augmentin * Infectious disease consulted, recommended oral antibiotic for additional 7 days * Patient was appropriately resuscitated with fluid remained stable to be discharged home on Augmentin Patient Condition at Discharge: Fair Plan - Discharge Summary Discharge Rx Participant: No New Discharge Prescriptions: New Amoxic-Pot Clav 875-125Mg [Augmentin 875-125] 1 tab PO BID 7 Days #14 tab Continue Multivitamins, Thera [Multivitamin (formulary)] 1 tab PO DAILY Emtricitabine/Tenofovir (Tdf) [Truvada 200 mg-300 mg Tablet] 1 tab PO DAILY Sildenafil Citrate 100 mg PO DIRECTED PRN PRN Reason: E.D. Prevagen 1 cap PO DAILY Discharge Medication List Emtricitabine/Tenofovir (Tdf) [Truvada 200 mg-300 mg Tablet] 1 tab PO DAILY 05/14/23 [History] Multivitamins, Thera [Multivitamin (formulary)] 1 tab PO DAILY 09/18/23 [History] Prevagen 1 cap PO DAILY 09/18/23 [History] Sildenafil Citrate 100 mg PO DIRECTED PRN 09/18/23 [History] Amoxic-Pot Clav 875-125Mg [Augmentin 875-125] 1 tab PO BID 7 Days #14 tab 09/20/23 [Rx] Follow up Appointment(s)/Referral(s): Magan Rossi DO [Primary Care Provider] - 1-2 days Discharge Disposition: HOME SELF-CARE
--- NOTE | 2023-09-20 15:21 | P.PN ---
Subjective Progress Note Date: 09/20/23 Principal diagnosis: Reason for follow-up is infected scalp wound and left-sided facial cellulitis Patient is a 68-year male who recently did have resection of a basal c ell carcinoma from the scalp subsequent developing some drainage and noticed to have increasing swelling and redness to the left side of the face concerning for facial cellulitis and infected wound. On today's evaluation that is 09/20/2023, the patient denies having any fever or any chills, patient denies having any discomfort to the scalp wound and the left-sided facial swelling redness has almost resolved patient denies having any pain no difficulty breathing no chest pain shortness of breath or cough no abdominal pain no diarrhea feeling better wants to go home. Patient did have white count of 6.53, creatinine 0.89 Vanco trough is low at 11.7 Objective - Vital Signs Vital signs: Vital Signs Temp 97.7 F 09/20/23 07:00 Pulse 73 09/20/23 07:00 Resp 16 09/20/23 07:00 BP 114/65 09/20/23 07:00 Pulse Ox 98 09/20/23 07:00 FiO2 Intake & Output 09/19/23 09/20/23 09/20/23 18:59 06:59 18:59 Intake Total 354 180 Balance 354 180 Intake: Oral 354 180 Other: # Voids 1 1 - Exam GENERAL DESCRIPTION: An elderly male lying in bed in no distress RESPIRATORY SYSTEM: Unlabored breathing , decreased breath sounds at bases HEART: S1 S2 regular rate and rhythm , ABDOMEN: Soft , no tenderness EXTREMITIES: No edema feet Scalp wound has dried out, Left-sided facial swelling redness almost resolved - Labs CBC & Chem 7: 09/20/23 06:13 09/20/23 06:13 Labs: Abnormal Lab Results - Last 24 Hours (Table) 09/20/23 09/20/23 Range/Units 06:13 06:13 RBC 4.20 L (4.40-5.60) X 10*6/uL Hct 38.7 L (39.6-50.0) % Chloride 108 H (98-107) mmol/L Microbiology - Last 24 Hours (Table) 09/18/23 18:00 Blood Culture - Preliminary Blood 09/18/23 17:45 Blood Culture - Preliminary Blood Assessment and Plan (1) Facial cellulitis Current Visit: Yes Status: Acute Code(s): L03.211 - CELLULITIS OF FACE SNOMED Code(s): 068134784 (2) Incisional infection Current Visit: Yes Status: Acute Code(s): T81.49XA - INFECTION FOLLOWING A PROCEDURE, OTHER SURGICAL SITE, INIT SNOMED Code(s): 44594311 Plan: 1patient presented to hospital with a left-sided facial cellulitis in this patient who recently did have removal of the basal cell carcinoma from the scalp daily more likely related to surgical site infection with secondary cellulitis likely from gram-positive skin lidia less likely gram-negative infection 2-patient has shown clinical improvement and almost resolution of the left-sided facial cellulitis more likely improved with the Unasyn as the Vanco trough was on the lower side as the patient has been insisting on going home we will consider 7 to 10-day course of oral Augmentin on discharge and close outpatient follow-up this was discussed with admitting team Dictation was produced using [employer] dictation software. please excuse any grammatical, word or spelling errors. Time with Patient: Less than 30
== END 2023-09-20 15:45 | disposition home or self-care (01) ==
LOC: EC 16:20 → 6NMEDSUR 17:50
PROVIDERS: ADMIT Hospitalist; ATTEND Hospitalist
DX: T81.49XA Infection following a procedure, other surgical site, initial encounter (principal); L03.211 Cellulitis of face; L03.811 Cellulitis of head [any part, except face]; Z79.899 Other long term (current) drug therapy; Z85.828 Personal history of other malignant neoplasm of skin; Z98.890 Other specified postprocedural states; Z80.9 Family history of malignant neoplasm, unspecified
CPT/HCPCS: 96361 ×2; 96366 ×3; 96365; 96367; 99284; 80053; 80048 ×2; 83605; 85025 ×3; 80202; 85610; 85730; 87040; G0378 ×3; J3370 ×3; J0295 ×3